=== PATIENT | male | born 1960 | race American Indian/Alaskan Native ===

== ENCOUNTER 2017-01-04 11:00 | Day surgery (SDC) | payer OTHER, MEDICARE ==
[~2017-01-04] VITALS: Ht 175.3 cm; Wt 122.5 kg
[~2017-01-04 11:00] MED LIST: ADULT LOW DOSE81 MG PO; AMBIEN10 MG PO; ASPIRIN EC81 MG PO; BACLOFEN10 MG PO; BENZONATATE200 MG PO; DILAUDID4 MG PO; GLIMEPIRIDE4 MG PO; GLYXAMBI 10 MG1 EACH PO; GRALISE600 MG PO; HYOSCYAMINE0.125 M1 SL; LISINOPRIL40 MG PO; LORAZEPAM1 MG PO; METFORMIN HCL500 M1 PO; NAPROSYN500 MG PO; NITROGLYCERIN0.4 MG SL; OLANZAPINE10 MG PO; OMEPRAZOLE20 MG PO; OXYBUTYNIN CHLOR5 MG PO; OXYCODONE HCL10 MG PO; OXYCONTIN10 MG PO; PENTOXIFYLLINE400 MG PO; SIMVASTATIN20 MG PO; SUPER B-50 COM1 EACH PO; TIZANIDINE HCL4 MG PO; TRAMADOL HCL50 MG PO; TRAZODONE HCL100 MG PO; TRENTAL400 MG PO; VITAMIN D350000 UNIT PO; XARELTO10 MG PO; ZOFRAN ODT8 MG PO; [UNRECOGNIZED DRUG - REMARK]
[2017-01-04] MEDS ORDERED: LANTUS100 UNITS/ SUB-Q (12:19)
--- NOTE | 2017-01-04 13:51 | NUR ---
01/04/17 1351 SiomaraRuddy zamora SAT 100, O2 TURNED OFF.
--- NOTE | 2017-01-26 07:48 | OR ---
[facility] [address], [place] [address] Signed DATE OF PROCEDURE: 01/04/17 PREOPERATIVE DIAGNOSIS: Colon screening. POSTOPERATIVE DIAGNOSIS: Polyps x3. PROCEDURE Total colonoscopy to cecum with cold snare polypectomy x1 and cold morcellation polypectomy x2. SURGEON: Adam Callaway MD. ANESTHESIA: Intravenous sedation, Fentanyl 150 mcg, Versed 8 mg. INDICATION This 56-year-old [place] man, who is a patient of Dr. Vinicius Peralta. He is referred for screening colonoscopy. He has numerous other medical problems, but no symptoms related to the colon itself. The risks of bleeding, infection, and perforation were reviewed with him. He understands and wished to proceed. FINDINGS The prep was excellent. Complete colonoscopy was undertaken to the cecum without question. There were 3 small polyps, all excised completely. The one at the hepatic flexure, was linear, subtle and excised with snare polypectomy technique. The other 2 with cold morcellation technique. One in the mid ascending colon and the other in the splenic flexure. DESCRIPTION OF PROCEDURE The patient was brought to the endoscopy suite and given intravenous sedation to the point of slurred speech and nystagmus with full cardiopulmonary monitoring. Digital rectal examination was normal. An Olympus video colonoscope was passed in the rectum and manipulated throughout the colon ultimately intubating the cecum itself. The appendiceal orifice and the ileocecal valve were identified. The scope was withdrawn from that point and in the mid ascending colon was a small sessile polyp. The scope was further withdrawn and in the area of the splenic flexure was an area of mucosa that was hyperplastic appearing or possibly adenomatous not definitely sure but oriented along the mucosal fold at the hepatic flexure. This was excised with cold snare technique without problem. Specimen passed for pathology. Further withdrawal of scope showed another small probably adenoma at the splenic flexure. This was excised with cold morcellation technique. The remaining colon was examined and found to be normal. Retroflexed view was normal as well. Scope was removed. The patient was taken to recovery room in good condition. Electronically Signed By: ADAM CALLAWAY MD 01/26/17 0748 PATIENT NAME: ANNETTE WOODARD OPERATIVE REPORT DATE OF : 58 PHYSICIAN: ADAM CALLAWAY MD REPORT #: [id number] REPORT IS CONFIDENTIAL AND NOT TO BE RELEASED WITHOUT AUTHORIZATION [facility] [address] [place] [id number] Signed CONCLUDING DIAGNOSIS: Polyps x3, all small. PLAN Repeat colonoscopy in 3-5 years, sooner if clinically indicated. He will return to the ongoing care of Dr. Vinicius Peralta. MD SHANNAN Clifford/Marii /[id number] cc: Vinicius Peralta DO Electronically Signed By: ADAM CALLAWAY MD 01/26/17 0748 PATIENT NAME: ANNETTE WOODARD OPERATIVE REPORT DATE OF : 58 PHYSICIAN: ADAM CALLAWAY MD REPORT #: [id number] REPORT IS CONFIDENTIAL AND NOT TO BE RELEASED WITHOUT AUTHORIZATION
== END 2017-01-04 14:19 | disposition home or self-care (01) ==
LOC: OPS 11:00 → DS 12:00 → OPS 12:00
PROVIDERS: Surgery
PROC: 0DBL8ZX Excision of Transverse Colon, Via Natural or Artificial Opening Endoscopic, Diagnostic (ICD-10-PCS; 2017-01-04)
PROC: 0DBK8ZX Excision of Ascending Colon, Via Natural or Artificial Opening Endoscopic, Diagnostic (ICD-10-PCS; principal; 2017-01-04 12:00)
DX: Z12.11 Encounter for screening for malignant neoplasm of colon (principal); K63.5 Polyp of colon; F32.9 Major depressive disorder, single episode, unspecified; F41.9 Anxiety disorder, unspecified; G25.81 Restless legs syndrome; E55.9 Vitamin D deficiency, unspecified; E11.40 Type 2 diabetes mellitus with diabetic neuropathy, unspecified; Z88.5 Allergy status to narcotic agent; Z88.8 Allergy status to other drugs, medicaments and biological substances; Z88.6 Allergy status to analgesic agent; Z79.899 Other long term (current) drug therapy
CPT/HCPCS: 99152; 99153; J0694; J2250; J3010; J7120

== ENCOUNTER 2017-11-17 11:03 | Emergency (ER) | payer OTHER, MEDICARE ==
[~2017-11-17] VITALS: Ht 177.8 cm; Wt 117.9 kg
--- OUTSIDE RECORDS SUMMARY | ~2017-11-17 | XMS | Clinical Summary ---
Demographics + + + | Address | [address] | | | [place] [address] | + + + | Home Phone | | + + + | Preferred Language | Unknown | + + + | Marital Status | | + + + | Hinduism Affiliation | 1067 | + + + | Race | Unknown | + + + | Ethnic Group | Unknown | + + + Author + + + | Author | [facility] [email or web address] | + + + | Organization | [facility] [email or web address] | + + + | Address | Unknown | + + + | Phone | Unavailable | + + + Support + + + + + | Name | Relationship | Address | Phone | + + + + + | Kamilla Henning | ECON | [address] | | | | | [place] | | | | | [address] | | + + + + + | Kamilla Ware | ECON | [place] | | | | | [address] | | + + + + + | Esme Nguyen | ECON | [address] | | | | | [place] [address] | | + + + + + | Esme Nguyen | ECON | [address] | | | | | [place] [address] | | + + + + + Care Team Providers + +------+ + | Care Criminal Analyst Name | Role | Phone | + +------+ + | Vinicius Peralta DO | PP | | + +------+ + Allergies Not on File Current Medications Not on file Active Problems Not on file Social History + +-------+ +--------+------+ | Tobacco Use | Types | Packs/Day | Years | Date | | | | | Used | | + +-------+ +--------+------+ | Never Assessed | | | | | + +-------+ +--------+------+ + + + | Sex Assigned at | Date Recorded | | | | + + + | Not on file | | + + + Plan of Treatment Not on file Results Not on filefrom Last 3 Months"
--- OUTSIDE RECORDS SUMMARY | ~2017-11-17 | XMS | Clinical Summary ---
Demographics + + + | Address | [address] | | | [place] [address] | + + + | Home Phone | | + + + | Preferred Language | Unknown | + + + | Marital Status | | + + + | Tenriism Affiliation | 1067 | + + + | Race | Unknown | + + + | Ethnic Group | Unknown | + + + Author + + + | Author | [facility] [employer] [facility] | + + + | Organization | [facility] [employer] [facility] | + + + | Address | Unknown | + + + | Phone | Unavailable | + + + Support + + + + + | Name | Relationship | Address | Phone | + + + + + | Kamilla Henning | ECON | [address] | | | | | [place] | | | | | [address] | | + + + + + | Kamilla Ware | ECON | [place] | | | | | [address] | | + + + + + | Esme Nguyen | ECON | [address] | | | | | [place] [address] | | + + + + + | Esme Nguyen | ECON | [address] | | | | | [place] [address] | | + + + + + Care Team Providers + +------+ + | Care Investor Name | Role | Phone | + [...]
[~2017-11-17 11:03] MED LIST changes: +LANTUS100 UNITS/ SUB-Q
[2017-11-17] MEDS ORDERED: CYCLOBENZAPRINE5 MG PO (11:38)
[2017-11-17] MEDS ORDERED: NAPROSYN500 MG PO (11:38)
== END 2017-11-17 12:17 | disposition home or self-care (01) ==
LOC: ED 11:03
DX: M25.552 Pain in left hip (principal); I10 Essential (primary) hypertension; E11.9 Type 2 diabetes mellitus without complications; Z88.8 Allergy status to other drugs, medicaments and biological substances; Z88.6 Allergy status to analgesic agent; Z88.5 Allergy status to narcotic agent; Z79.84 Long term (current) use of oral hypoglycemic drugs; Z79.899 Other long term (current) drug therapy
CPT/HCPCS: 96372; 99283; J1885

== ENCOUNTER 2018-09-11 23:28 | Emergency (ER) | payer OTHER, MEDICARE ==
[~2018-09-11] VITALS: Ht 177.8 cm; Wt 117.9 kg
[~2018-09-11 23:28] MED LIST changes: +CYCLOBENZAPRINE5 MG PO
--- OUTSIDE RECORDS SUMMARY | 2018-09-11 23:30 | XMS ---
PreManage Notification: ANNETTE WOODARD Security Perl Programmer Events No recent Security Events currently on file [facility] There are no care providers on record at this time. Juanpablo has no Care Guidelines for this patient. Lauryn VISIT COUNT (12 MO.) 2 EMILY Sanches TOTAL 2 NOTE: Visits indicate total known visits. ED/C VISIT TRACKING (12 MO.) 09/11/2018 23:28 EMILY Walker OR TYPE: Emergency COMPLAINT: - LEG PAIN 11/17/2017 11:03 EMILY Daily EddiLizbet Palma OR TYPE: Emergency COMPLAINT: - L HIP PAIN/NO INJURY DIAGNOSES: - Type 2 diabetes mellitus without complications - Allergy status to narcotic agent status - Pain in left hip - lobsterman (current) use of oral hypoglycemic drugs - Allergy status to other drugs, medicaments and biological substances status - Essential (primary) hypertension - Allergy status to analgesic agent status - Other care home (current) drug therapy INPATIENT VISIT TRACKING (12 MO.) No inpatient visits to display in this time frame [id number]
[2018-09-11] MEDS ORDERED: PRAMIPEXOLE D0.75 MG PO (23:36)
== END 2018-09-12 02:12 | disposition home or self-care (01) ==
LOC: ED 23:28
DX: G25.81 Restless legs syndrome (principal); I10 Essential (primary) hypertension; E11.9 Type 2 diabetes mellitus without complications; Z95.5 Presence of coronary angioplasty implant and graft; Z88.8 Allergy status to other drugs, medicaments and biological substances; Z88.5 Allergy status to narcotic agent; Z79.82 Long term (current) use of aspirin; Z79.4 Long term (current) use of insulin; Z79.899 Other long term (current) drug therapy
CPT/HCPCS: 80053; 81001; 85025; 96361; 96374; 99283-25; J2060; J7030

== ENCOUNTER 2018-11-11 23:10 | Emergency (ER) | payer OTHER, MEDICARE ==
[~2018-11-11] VITALS: Ht 177.8 cm; Wt 101.2 kg
[~2018-11-11 23:10] MED LIST changes: +PRAMIPEXOLE D0.75 MG PO
--- OUTSIDE RECORDS SUMMARY | 2018-11-11 23:12 | XMS ---
PreManage Notification: ANNETTE WOODARD Security Painter Mirror Events No recent Security Events currently on file CRITERIA MET - [facility] - Has Care Guidelines - PDMP CARE PROVIDERS MELISSA GRIFFIN [facility] 09/12/2018-Current PHONE: [phone] Renaldo Irving [facility] 09/12/2018-Current PHONE: Unknown Juanpablo has no Care Guidelines for this patient. Care History Medical/Surgical 09/12/2018 [facility] - Patient is currently established with [facility]. If patient is seen in the ED during business hours. Please contact CHWs at [facility]. Care Recommendation: This patient has had 5 or more Emergency Department visits in the last 12 months.\T\nbsp; Patient requires education on the scope and purpose of the ED as an acute care provider not a Primary Care Provider and should not be utilized for chronic conditions.\T\nbsp; These are guidelines and the provider should exercise clinical judgment when providing care. E.D. VISIT COUNT (12 MO.) 3 EMILY Sanches TOTAL 3 NOTE: Visits indicate total known visits. ED/UCC VISIT TRACKING (12 MO.) 11/11/2018 23:10 EMILY Walker OR TYPE: Emergency COMPLAINT: - RESTLESS LEGS 09/11/2018 23:28 EMILY Walker OR TYPE: Emergency COMPLAINT: - LEG PAIN DIAGNOSES: - Presence of coronary angioplasty implant and graft - middle or intermediate school principal (current) use of insulin - Other longterm (current) drug therapy - Type 2 diabetes mellitus without complications - middle or intermediate school principal (current) use of aspirin - Allergy status to other drugs, medicaments and biological substances status - Pain in leg, unspecified - Restless legs syndrome - Essential (primary) hypertension - Allergy status to narcotic agent status 11/17/2017 11:03 EMILY Walker [place] TYPE: Emergency COMPLAINT: - L HIP PAIN/NO INJURY DIAGNOSES: - Type 2 diabetes mellitus without complications - Allergy status to narcotic agent status - Pain in left hip - group home (current) use of oral hypoglycemic drugs - Allergy status to other drugs, medicaments and biological substances status - Essential (primary) hypertension - Allergy status to analgesic agent status - Other longterm (current) drug therapy INPATIENT VISIT TRACKING (12 MO.) No inpatient visits to display in this time frame [id number]
[2018-11-11] MEDS ORDERED: ATORVASTATIN CA80 MG PO (23:24)
[2018-11-11] MEDS ORDERED: TOLTERODINE TART4 MG PO (23:24)
[2018-11-11] MEDS ORDERED: GEODON80 MG NG (23:25)
[2018-11-11] MEDS ORDERED: BACLOFEN20 MG PO (23:26)
[2018-11-11] MEDS ORDERED: LYRICA75 MG PO (23:26)
== END 2018-11-12 00:46 | disposition home or self-care (01) ==
LOC: ED 23:10
DX: G25.81 Restless legs syndrome (principal); E11.9 Type 2 diabetes mellitus without complications; I10 Essential (primary) hypertension; Z95.5 Presence of coronary angioplasty implant and graft; Z88.5 Allergy status to narcotic agent; Z88.6 Allergy status to analgesic agent; Z88.8 Allergy status to other drugs, medicaments and biological substances; Z79.899 Other long term (current) drug therapy; Z79.82 Long term (current) use of aspirin
CPT/HCPCS: 99283

== ENCOUNTER 2018-12-11 20:25 | Inpatient (IN) | payer OTHER, MEDICARE ==
[~2018-12-11] VITALS: Ht 177.8 cm; Wt 101.2 kg
[~2018-12-11 20:25] MED LIST changes: +ATORVASTATIN CA80 MG PO; +BACLOFEN20 MG PO; +GEODON80 MG NG; +LYRICA75 MG PO; +TOLTERODINE TART4 MG PO
--- OUTSIDE RECORDS SUMMARY | 2018-12-11 20:28 | XMS ---
PreManage Notification: ANNETTE WOODARD Security Boring Machine Operator Events No recent Security Events currently on file CRITERIA MET - [facility] - Has Care Guidelines - PDMP - [facility] - 2 Visits in 30 Days CARE PROVIDERS MELISSA GRIFFIN [facility] 09/12/2018-Current PHONE: [phone] Renaldo Irving [facility] 09/12/2018-Current PHONE: Unknown Juanpablo has no Care Guidelines for this patient. Care History Medical/Surgical 09/12/2018 [facility] - Patient is currently established with [facility]. If patient is seen in the ED during business hours. Please contact CHWs at [facility]. Care Recommendation: This patient has had 5 [...] care. E.D. VISIT COUNT (12 MO.) [address] [facility] TOTAL 3 NOTE: Visits indicate total known visits. ED/UCC VISIT TRACKING (12 MO.) 12/11/2018 20:25 EMILY Walker [place] TYPE: Emergency COMPLAINT: - STROKE LIKE SYMPTOMS 11/11/2018 23:10 EMILY Walker OR TYPE: Emergency COMPLAINT: - RESTLESS LEGS DIAGNOSES: - half-way (current) use of aspirin - Other jail (current) drug therapy - Allergy status to narcotic agent status - Essential (primary) hypertension - Allergy status to analgesic agent status - Type 2 diabetes mellitus without complications - Presence of coronary angioplasty implant and graft - Restless legs syndrome - Allergy status to other drugs, medicaments and biological substances status 09/11/2018 23:28 EMILY Walker OR TYPE: Emergency COMPLAINT: - LEG PAIN DIAGNOSES: - Presence of coronary angioplasty implant and graft - half-way (current) use of insulin - Other jail (current) drug therapy - Type 2 diabetes mellitus without complications - special needs librarian (current) use of aspirin - Allergy status to other drugs, medicaments and biological substances status - Pain in leg, unspecified - Restless legs syndrome - Essential (primary) hypertension - Allergy status to narcotic agent status INPATIENT VISIT TRACKING (12 MO.) No inpatient visits to display in this time frame [id number]
--- NOTE | 2018-12-12 01:38 | NUR ---
PATIENT ARRIVED FROM ER AND KNOWS HIS BUT CONFUSED AOUT DATE TIME AND CIRCUMSTANCES. PATIENT'S FAMILY BROUGHT HIM SOME FOOD HE HAS NOT EATEN ALL DAY. PATIENT IS COOPERATIVE AND IN NO DISTRESS. ADMISSION DONE AND PATIENT OIENTED TO THE ROOM. SR ON TELE#9 AND LR AT 100MLS AN HOUR IN IV THAT IS WNL. LUNGS CLEAR AND BOWEL TONES ACTIVE. CALL LIGHT IS IN REACH.
[2018-12-12] MEDS ORDERED: VITAMIN D250000 UNIT PO (01:39)
[2018-12-12] MEDS ORDERED: ZIPRASIDONE HCL80 MG PO (01:41)
[2018-12-12] MEDS ORDERED: MELATONIN10 M2 PO (01:45)
--- NOTE | 2018-12-12 02:10 | NUR ---
PATIENT FINISHING THE MEAL HIS FAMILY BROUGHT HIM AND IS CURRENTLY USING THE URINAL. AT BEDSIDE.
--- NOTE | 2018-12-12 03:16 | NUR ---
PATIENT IS RESTING QUIETLY ON HIS RIGHT SIDE WITH EVEN AND REGULAR RESPIRATIONS, EYES CLOSED, AND CALL LIGHT AND URINAL IN REACH.
--- NOTE | 2018-12-12 03:50 | NUR ---
PATIENT TRYING TO GET STAFF TO GIVE HIM MORE ORAL FLUIDS, BUT HE HAS ALREADY MET HIS RESTRICTION FOR THE DAY. PATIENT IS NOW UP TO USE THE BATHROOM WITH STEVEN SMITH.
--- NOTE | 2018-12-12 05:14 | NUR ---
PATIENT HAS TRIED TO SLEEP SINCE ADMISSION , BUT HAS BEEN RESTLESS AND CHANGED POSITIONS A LOT DISCONNECTING HIS TELE, WHICH HAS SHOWN HIS HEART RATE RUNNING MAINLY FROM THE 60'S-80'S. USING URINAL AT BEDSIDE. PATIENT STILL CONFUSED AND DISORIENTED ABOUT DATE TIME AND SITUATION, BUT IS COOPERATIVE.
--- NOTE | 2018-12-12 07:23 | NUR ---
REPORT RECEIVED FROM JACOBO CABEZAS. PT AWAKE AND STATES "I JUST CAN'T SLEEP." PT REPORTS 7/10 PAIN IN HIS RIGHT HIP AND SAYS THIS PAIN IS NORMALLY A 6/10. PT ORIENTED TO HIS OWN NAME AND FAMILY IN THE ROOM BUT STATES HE IS 29 YEARS OLD AND IT IS "YEAR 28." PTS FAMILY STATES PT IS "A LITTLE" BETTER TODAY BUT STILL VERY DISORIENTED. PT DENIES REQUESTS AT THIS TIME. PT AND FAMILY ASSISTED WITH ORDERING BREAKFAST.
--- NOTE | 2018-12-12 07:53 | NUR ---
PT CALL LIGHT ON. PT REPORTS NAUSEA AND IS HEAVING. CALLED FOR MEDICATION ORDER. MEDICAITONS GIVEN. PT REPORTS IMMIDIATE RELIEF. ASSESSMENT DONE. PT ABLE TO STATE WHERE HE IS, MONTH, AND HIS OWN AND 'S NAMES. PT UNABLE TO STATE HIS BIRTHDAY AND STATES HE IS 29 YEARS OLD. PT ALSO UNABLE TO STATE YEAR. DURING ASSESSMENT PT HAS PERIODS OF GAZING OFF INTO SPACE, AND DOZING OFF. PT CONTINUES TO REPORT PAIN IN RIGHT HIP. SEE MAR FOR MEDICATION GIVEN. PTS POINTS OUT THAT PT IS ABLE TO RETAIN ANSWERS TO QUESTIONS THAT HE HAS BEEN TOLD. FOR EXAMPLE, PT WAS TOLD [place] IN [place] AND IS NOW ABLE TO STATE WHAT TOWN HE IS IN. HOWEVER, QUESTIONS HE HAS NOT BEEN GIVEN THE ANSWER TO PT IS STILL UNABLE TO RECAL (I.E. AGE). PT CONTINUES TO STATE HE DOES NOT REMEBER EVENTS OF YESTERDAY. FALL PRECAUTIONS REVIEWIED WITH PT. MEDICAITONS GIVEN. BED RAILSUP. CALL LIGHT WITHIN REACH.
--- NOTE | 2018-12-12 10:08 | NUR ---
THIS RN TO ROOM TO CHECK ON PT. PT CONTINUES TO REPORT NAUSEA. ORIENTATION STATUS UNCHANGED. FAMILY AT BEDSIDE. PT RESTING IN BED. NO ADDITIONAL REQUESTS OR COMPLAINTS. CALL LIGHT WITHIN REACH. BED RAILS UP. BED ALARM ON.
--- NOTE | 2018-12-12 11:07 | NUR ---
PT UP TO AMBULATE WITH PHYSICAL THERAPY. SBA WITH GAIT BELT. UP TO STAND WITHOUT ASSISTANCE. AMBULATING IN [place] WITH BEBETO, PHYSICAL THERAPY.
[2018-12-12] MEDS ORDERED: ZOLPIDEM TARTRA10 MG PO (11:44)
[2018-12-12] MEDS ORDERED: CELECOXIB200 MG PO (11:46)
[2018-12-12] MEDS ORDERED: LISINOPRIL40 MG PO (11:49)
[2018-12-12] MEDS ORDERED: LISINOPRIL20 MG PO (11:51)
[2018-12-12] MEDS ORDERED: VICTOZA 2-0.6 MG/0.1 SUB-Q (11:53)
[2018-12-12] MEDS ORDERED: FARXIGA10 MG PO (11:54)
--- NOTE | 2018-12-12 12:01 | NUR ---
NOON ASSESSMENT DUE. PT UP, SITTING ON COUCH. PT REPORTS PAIN AT 5/10 AND STATES PAIN IS "BETTER" AND TOLERABLE AT THIS TIME. PT NOW ABLE TO STATE HIS BIRTHDAY AND HOW OLD HE AND HIS ARE WITH ACCURACTY. PT REMAINS UNSURE OF DATE AND YEAR. PT OTHERWISE ORIENTED. PT EXHIBITS NORMAL STRENGTH, PT ABLE TO AMBULATE WITH SBA. STATES PT "SEEMS MUCH BETTER NOW." PT WORKING WITH OCCUPATIONAL THERAPY AND EATING LUNCH. PT CONTINUES TO REPORT NAUSEA (SEE MAR FOR MEDICAITON GIVEN.) NO ADDITIONAL REQUESTS OR COMPLAINTS. CALL LIGHT WITHIN REACH. FAMILY AT BEDSIDE.
[2018-12-12] MEDS ORDERED: MIRAPEX0.75 MG PO (12:41)
--- NOTE | 2018-12-12 12:43 | NUR ---
MED REC COMPLETE
--- NOTE | 2018-12-12 13:33 | NUR ---
MD TO BEDSIDE FOR ROUNDS. PT REPORTS INCREASED NUMBNESS/TINGLING IN LEGS AND "RESTLESS" FEELING IN LEGS. PT FINISHED WITH LUNCH, 75% CONSUMED. PT AND VERBALIZE UNDERSTANDING OF PLAN OF CARE AND STATE THEIR QUESTIONS HAVE BEEN ANSWERED.
--- NOTE | 2018-12-12 14:45 | NUR ---
MEDICATION DUE. PT REPORTS 7/10 PAIN IN RIGHT HIP. SEE MAR FOR MEDICATION GIVEN. PT RESTING IN BED. NO ADDITIONAL REQUESTS OR COMPLAINTS. CALL LIGHT WITHIN REACH.
--- NOTE | 2018-12-12 14:50 | NUR ---
MD CONSULTED REGARDING PTS DOSAGE OF PRAMIPREXOLE VS. HOME DOES OF PRAMAPREXIOL. PHARMACY INVOLVED. DOSES ADJUSTED. PT UPDATED.
--- NOTE | 2018-12-12 14:58 | NUR ---
PATIENT RESTING IN BED WATCING TV WITH IN ROOM. CALL BUTTON IN REACH. FRESH ICE WATER HAS BEEN GIVEN NO OTHER NEEDS AT THIS TIME.
--- NOTE | 2018-12-12 16:27 | NUR ---
AFTERNOON ASSESSMENT DUE. PT RESTING IN BED WATCHING TV. PT NOW ORIENTED TO ALL, ABLE TO STATES DATE, BIRTHDAY, AND TIME, WELL NAME, PLACE, AND EVENTS. PT RECALLS EVENTS FROM TODAY WITH ACCURACY. PT REPORTS "RESTLESS" FEELING IN LEGS IS IMPROVING. PT NOW RATES PAIN AT 5/10 WITH HE STATES IS TOLERABLE, PT DENIES NEED FOR PAIN MEDICATION AT THIS TIME. CGB TAKEN. PT DENIES ADDITIONAL REQUESTS OR COMPLAINS. CALL LIGHT WITHIN REACH. BED RAILS UP. FAMILY AT BEDSIDE.
--- NOTE | 2018-12-12 17:38 | NUR ---
SPOKE WITH PATIENT AND IN ROOM. PATIENT ORIENTED AND COOPERATIVE. BOTH STATE PATIENT WILL RETURN HOME AT DISCHARGE AND KNOW OF NO BARRIERS TO THIS. PATIENTS WILL BE HERE FOR DISCHARGE. DISCUSSED WITH THEM TO UNDERSTAND INSTRUCTIONS. DIAGNOSIS, TEST RESULTS, MEDICATIONS AND SIDE EFFECTS, THEY STATE HE ALREADY HAS A FOLLOW UP APPT WITH DR RANKIN ON . NO ISSUES WITH AMBULATION OR TRANSPORTATION. QUESTIONS ANSWERED. WILL FOLLOW NEEDED.
--- NOTE | 2018-12-12 19:00 | NUR ---
PT HERE FOR CONFUSION. IMPROVED ORIENTATION THIS SHIFT. PT NOW ORIENTED TO ALL. NAUSEA THIS SHIFT, ZOFRAN GIVEN X2, PT STILL ABLE TO TOLERATE 60G CARB DIET, ATE 3 MEALS. TELE IN NSR THIS SHIFT. PT UP WITH PHYSICAL THERAPY TO AMBULATE IN HALLS. AMBUATED FOR 6 MINUTES WITH MINIMAL ASSISTANCE. MAG RIDER GIVEN THIS SHIFT. FAMILY AT BEDSIDE. SLIDING SCALE INSULIN. PT USES CALL LIGHT APPROPRIATLY.
--- NOTE | 2018-12-12 19:15 | NUR ---
REPORT GIVEN TO JACOBO CABEZAS. MEDICATION GIVEN. PT ORIENTED TO ALL BUT REPORTS RESTLESS LEG SHAKING AND DISCOMFORT IS INCREASING. MEDICATION TO BE GIVEN. PT DENIES ADDITIONAL REQUESTS OR COMPLAINTS. CALL LIGHT WITHIN REACH. BED RAILS UP. FAMILY AT BEDSIDE.
--- NOTE | 2018-12-12 19:54 | NUR ---
PATIENT HAS BEEN WALKING THE HALLS FOR HIS RESTLESS LEGS, AND WOULD LIKE ALL HIS MEDS NOW. CALL LIGHT IN REACH. WILL BE BACK WITH MEDS SHORTLY. AT BEDSIDE. PATIENT'S MENTATION IS MUCH IMPROVED. CALL LIGHT IN REACH.
--- NOTE | 2018-12-12 20:39 | NUR ---
PATIENT GIVEN HIS PM MEDS EARLY FOR HIS RESTLESS LEGS AND RT HIP PAIN. PATIENT IN BED WATCHING TV. AT BED SIDE. PATIENT ALERT AND ORIENTED NOW. CALL LIGHT IN REACH.
--- NOTE | 2018-12-12 21:10 | EKG ---
[facility] [address] [facility] [facility] [place], [place] [address] Signed Normal sinus rhythm Normal ECG No previous ECGs available Confirmed by NIXON TANG DO ([id number]) on 12/12/2018 9:09:38 PM Electronically Signed By: NIXON TANG DO 12/12/182109 PATIENT NAME: BASIA WOODARDO Electrocardiogram DATE OF : 58 PHYSICIAN: NIXON TANG DO REPORT #: [id number] REPORT IS CONFIDENTIAL AND NOT TO BE RELEASED WITHOUT AUTHORIZATION
--- NOTE | 2018-12-12 21:16 | NUR ---
CHARGE NURSE ROUNDING. pt RESTING WITH LIGHTS OFF. NO REQUESTS OR COMPLAINTS. PROPER WRIST BANDS IN PLACE. WHITEBOARD UPDATED. CALL LIGHT WITHIN REACH.
--- NOTE | 2018-12-12 21:25 | NUR ---
VITALS AND I&OS DONE AND CHARTED. BEDSIDE TABLE AND CALL LIGHT IN REACH.
--- NOTE | 2018-12-12 23:02 | NUR ---
PATIENT RESTING QUIETLY SUPINE, EYES CLOSED, RESPIRATIONS REGULAR AND EVEN AFTER PATIENT GOT THE 10MG OF MELATONIN HE REQUESTED AND ORDERED. CALL LIGHT IS IN REACH.
--- NOTE | 2018-12-13 01:10 | NUR ---
PATIENT AWAKE AMD ASKED TO HAVE HIS URINAL DUMPED. 800MLS DUMPED AND PATIENT GOING TO USE IT AGAIN NOW. CALL LIGHT IN REACH.
--- NOTE | 2018-12-13 03:00 | NUR ---
PATIENT RESTING QUIETLY IN BED SUPINE, RESPIRATIONS REGULAR AND EVEN, EYES CLOSED AND CALL LIGHT IN REACH.
--- NOTE | 2018-12-13 05:12 | NUR ---
PATIENT WALKED MULTIPLE LAPS AROUND THE NURSES STATION AT THE BEGINING OF THE SHIFT DUE TO HIS RESTLESS LEGS, BUT SLEPT ON AND OFF AFTER EVENING MEDS WERE GIVEN. PATIENT USING URINAL WELL WITH GOOD URINE OUTPUT. IV INFUSING AND WNL. JUST HAD TO CHANGE THE TELE BATTERY AND PATIENT HAS BEEN IN SR. PATIENT AWAKE AT THIS TIME, BUT RESTING QUIETLY WITH NEEDS AT THIS TIME. PATIENT A+O NOW. CALL LIGHT IS WITHIN REACH. SPOUSE ASLEEP ON THE COUCH.
--- NOTE | 2018-12-13 08:29 | NUR ---
PT IS AWAKE EARLY, SITTING UP IN BED LOOKING FORWARD TO BREAKFAST. DENIES NAUSEA THIS AM, AT BEDSIDE, PT IS ALERT AND ORIENTED THIS AM. DENIES ANY CONCERNS.
--- NOTE | 2018-12-13 10:00 | NUR ---
ATE 100% OF BREAKFAST, TOLERATED SHOWER WELL. DENIES ANY NEEDS AT THIS TIME, WATCHING TV WITH AT BEDSIDE.
--- NOTE | 2018-12-13 12:54 | NUR ---
PT DISCHARGED TO HOME A THIS TIME WITH , DISCHARGE INSTRUCTIONS DISCUSSED WITH PT AND . VERBALIZED UNDERSTANDING OF MEDICATIONS AND FOLLOW UP APPOINTMENT, SL DC'D INTACT.
== END 2018-12-13 12:55 | disposition home or self-care (01) | DRG 91 ==
LOC: ED 20:25 → MS 12-12 00:07
PROVIDERS: ADMIT Student in an Organized Health Care Education/Training Program
DX: G92 Toxic encephalopathy (principal); I21.A1 Myocardial infarction type 2; T42.6X5A Adverse effect of other antiepileptic and sedative-hypnotic drugs, initial encounter; F25.9 Schizoaffective disorder, unspecified; E78.5 Hyperlipidemia, unspecified; G47.00 Insomnia, unspecified; E11.9 Type 2 diabetes mellitus without complications; I10 Essential (primary) hypertension; K21.9 Gastro-esophageal reflux disease without esophagitis; G25.81 Restless legs syndrome; M19.90 Unspecified osteoarthritis, unspecified site; M79.7 Fibromyalgia; M25.551 Pain in right hip; N32.81 Overactive bladder; Z95.5 Presence of coronary angioplasty implant and graft; Z79.84 Long term (current) use of oral hypoglycemic drugs; Z79.82 Long term (current) use of aspirin; Z79.899 Other long term (current) drug therapy; Z88.8 Allergy status to other drugs, medicaments and biological substances; Z88.5 Allergy status to narcotic agent
CPT/HCPCS: 36415; 70450; 70496; 70498; 71045; 73502; 73700; 80048; 80053; 80061; 81001; 82140; 82550; 82607; 83036; 83735; 84100; 84443; 84484; 85025; 85610; 85730; 90688; 92523; 93005; 93010; 97162; 97166; 99285-25; G0480; J1170; J1815; J1885; J2405; J3475; J7030; J7120; Q9967

== ENCOUNTER 2020-04-03 22:05 | Emergency (ER) | payer OTHER, MEDICARE ==
[~2020-04-03] VITALS: Ht 177.8 cm; Wt 101.2 kg
[~2020-04-03 22:05] MED LIST changes: +CELECOXIB200 MG PO; +FARXIGA10 MG PO; +LISINOPRIL20 MG PO; +MELATONIN10 M2 PO; +MIRAPEX0.75 MG PO; +VICTOZA 2-0.6 MG/0.1 SUB-Q; +VITAMIN D250000 UNIT PO; +ZIPRASIDONE HCL80 MG PO; +ZOLPIDEM TARTRA10 MG PO
--- OUTSIDE RECORDS SUMMARY | 2020-04-03 22:08 | XMS ---
PreManage Notification: ANNETTE WOODARD Security Manager Sustainability Events No recent Security Events currently on file CRITERIA MET - [facility] [place] CARE PROVIDERS MELISSA GRIFFIN [facility] 09/12/2018-Current PHONE: [phone] Renaldo Irving [facility] 09/12/2018-Current PHONE: [phone] Juanpablo has no Care Guidelines for this patient. Care History Medical/Surgical 09/12/2018 [facility] - Patient is currently established with [facility]. If patient is seen in the ED during business hours. Please contact CHWs at [facility]. Care Recommendation: This patient has [...] providing care. E.D. VISIT COUNT (12 MO.) 1 EMILY Sanches TOTAL 1 NOTE: Visits indicate total known visits. ED/UCC VISIT TRACKING (12 MO.) 04/03/2020 22:05 EMILY Walker [place] TYPE: Emergency COMPLAINT: - SOB INPATIENT VISIT TRACKING (12 MO.) No inpatient visits to display in this time frame [id number]
--- NOTE | 2020-04-04 15:53 | EKG ---
[facility] [address] [facility] [address] [place] [address] Signed Normal sinus rhythm Inferior infarct , age undetermined Abnormal ECG When compared with ECG of 11-DEC-2018 20:41, Inferior infarct is now present Nonspecific T wave abnormality now evident in Lateral leads Confirmed by LESTER BILL MD ([id number]) on 04/04/2020 3:53:07 PM Electronically Signed By: LESTER BILL MD 04/04/20 1553 PATIENT NAME: ANNETTE WOODARD Electrocardiogram DATE OF : 58 PHYSICIAN: LESTER BILL MD REPORT #: [id number] REPORT IS CONFIDENTIAL AND NOT TO BE RELEASED WITHOUT AUTHORIZATION
== END 2020-04-04 00:58 | disposition home or self-care (01) ==
LOC: ED 22:05
DX: J45.909 Unspecified asthma, uncomplicated (principal); E11.9 Type 2 diabetes mellitus without complications; I10 Essential (primary) hypertension; Z88.8 Allergy status to other drugs, medicaments and biological substances; Z88.5 Allergy status to narcotic agent; Z79.899 Other long term (current) drug therapy; Z79.82 Long term (current) use of aspirin; Z79.84 Long term (current) use of oral hypoglycemic drugs; Z20.822 Contact with and (suspected) exposure to COVID-19
CPT/HCPCS: 71045; 80053; 83735; 84484; 85025; 93005; 93010; 94640; 99285-25; C9803; U0003

== ENCOUNTER 2020-12-10 08:57 | Inpatient (IN) | payer OTHER, MEDICARE ==
[~2020-12-10] VITALS: Ht 177.8 cm; Wt 108.9 kg
--- OUTSIDE RECORDS SUMMARY | 2020-12-10 09:00 | XMS ---
PreManage Notification: ANNETTE WOODARD Security Interventional Radiology Rn Events No recent Security Events currently on file CRITERIA MET - PDMP CARE PROVIDERS RAFAEL RANKIN [facility] 04/05/2020-Current PHONE: [phone] MELISSA GRIFFIN [facility] 09/12/2018-Current PHONE: [phone] Renaldo Irving [facility] 09/12/2018-Current PHONE: [phone] Juanpablo has no Care Guidelines for this patient. E.D. VISIT COUNT (12 MO.) 2 EMILY Sanches TOTAL 2 NOTE: Visits indicate total known visits. ED/UCC VISIT TRACKING (12 MO.) 12/10/2020 08:58 EMILY Walker [place] TYPE: Emergency COMPLAINT: - SLEEPWALKING 04/03/2020 22:05 EMILY Walker [place] TYPE: Emergency COMPLAINT: - SOB DIAGNOSES: - Type 2 diabetes mellitus without complications - Essential (primary) hypertension - Shortness of breath - Other terminal clerk (current) drug therapy - Allergy status to narcotic agent - Allergy status to other drugs, medicaments and biological substances - terminal clerk (current) use of aspirin - Unspecified asthma, uncomplicated - correction (current) use of oral hypoglycemic drugs INPATIENT VISIT TRACKING (12 MO.) No inpatient visits to display in this time frame [id number]
[2020-12-10] MEDS ORDERED: DULOXETINE HCL60 MG PO (09:25)
[2020-12-10] MEDS ORDERED: AMITRIPTYLINE H25 MG PO (09:28)
[2020-12-10] MEDS ORDERED: CLONAZEPAM1 MG PO (09:29)
[2020-12-10] MEDS ORDERED: CANDICIDAL CAP1 EACH PO (09:30)
[2020-12-10] MEDS ORDERED: TYLENOL325 MG PO (09:32)
[2020-12-10] MEDS ORDERED: VICTOZA 2-0.6 MG/0.1 SUB-Q (09:32)
[2020-12-10] MEDS ORDERED: ACTOS15 MG PO (09:40)
[2020-12-10] MEDS ORDERED: METFORMIN HCL500 MG PO (09:42)
[2020-12-10] MEDS ORDERED: DETROL LA4 MG PO (09:42)
[2020-12-10] MEDS ORDERED: FLOMAX0.4 MG PO (09:43)
[2020-12-10] MEDS ORDERED: LISINOPRIL-HCT1 EACH PO (09:43)
[2020-12-10] MEDS ORDERED: ZOFRAN4 MG PO (09:44)
[2020-12-10] MEDS ORDERED: CLONIDINE HCL0.2 MG PO (15:42)
[2020-12-10] MEDS ORDERED: TESTOSTERO200 MG/1 M IM (15:46)
[2020-12-10] MEDS ORDERED: VITAMIN D21250 MCG PO (15:53)
[2020-12-10] MEDS ORDERED: BANOPHEN25 MG PO (15:55)
[2020-12-10] MEDS ORDERED: VENTOLIN HFA18 GM INH (16:31)
[2020-12-10] MEDS ORDERED: PRAMIPEXOLE D0.75 MG PO (16:32)
[2020-12-10] MEDS ORDERED: PREGABALIN200 MG PO (16:57)
[2020-12-10] MEDS ORDERED: TADALAFIL10 MG PO (17:07)
--- NOTE | 2020-12-12 18:08 | EKG ---
[facility] [address] [facility] [place], [place] [address] Signed Normal sinus rhythm Inferior infarct (cited on or before 03-APR-2020) Abnormal ECG When compared with ECG of 03-APR-2020 22:14, No significant change was found Confirmed by LESTER BILL MD ([id number] on 12/12/2020 6:08:33 PM Electronically Signed By: LESTER BILL MD 12/12/20 1808 PATIENT NAME: ANNETTE WOODARD Electrocardiogram DATE OF : 58 PHYSICIAN: LESTER BILL MD REPORT #: [id number] REPORT IS CONFIDENTIAL AND NOT TO BE RELEASED WITHOUT AUTHORIZATION
[2020-12-13] MEDS ORDERED: PRAMIPEXOLE D0.75 MG PO (10:08)
== END 2020-12-13 12:10 | disposition home or self-care (01) | DRG 208 ==
LOC: ED 08:57 → CCU 13:35
PROVIDERS: ADMIT Internal Medicine; ATTEND Internal Medicine
PROC: 5A1945Z Respiratory Ventilation, 24-96 Consecutive Hours (ICD-10-PCS; principal; 2020-12-10)
PROC: 0BH17EZ Insertion of Endotracheal Airway into Trachea, Via Natural or Artificial Opening (ICD-10-PCS; 2020-12-10)
DX: J96.00 Acute respiratory failure, unspecified whether with hypoxia or hypercapnia (principal); G92 Toxic encephalopathy; F15.23 Other stimulant dependence with withdrawal; E11.9 Type 2 diabetes mellitus without complications; I10 Essential (primary) hypertension; M79.7 Fibromyalgia; M19.90 Unspecified osteoarthritis, unspecified site; G25.81 Restless legs syndrome; F25.9 Schizoaffective disorder, unspecified; Z20.822 Contact with and (suspected) exposure to COVID-19; G47.33 Obstructive sleep apnea (adult) (pediatric); K21.9 Gastro-esophageal reflux disease without esophagitis; R45.1 Restlessness and agitation; E78.5 Hyperlipidemia, unspecified; N32.81 Overactive bladder; Z96.653 Presence of artificial knee joint, bilateral; Z98.890 Other specified postprocedural states; Z95.5 Presence of coronary angioplasty implant and graft; Z88.6 Allergy status to analgesic agent; Z88.8 Allergy status to other drugs, medicaments and biological substances; Z88.5 Allergy status to narcotic agent; Z79.82 Long term (current) use of aspirin; Z79.899 Other long term (current) drug therapy; Z79.84 Long term (current) use of oral hypoglycemic drugs; Z78.1 Physical restraint status
CPT/HCPCS: 31500; 31720; 36600; 51702; 70450; 71045; 80048; 80053; 81001; 82553; 82803; 83735; 85025; 87045; 93005; 93010; 94002; 94003; 94660; 99285-25; A9270; C9113; C9803; J1650; J1815; J2060; J2250; J2704; J3486; J7030; J7121; U0003